=== PATIENT | female | born 1985 | race Caucasian/White ===

== ENCOUNTER 2018-07-16 07:43 | Day surgery (SDC) | payer BC ==
[2018-07-14 11:32] LABS: BASOPHILS 0.1 % (0-2); EOSINOPHILS 0.2 % (0-7); HEMATOCRIT 44.2 % (36.0-48.0); HEMOGLOBIN 15.4 g/dL (12-16); IMMATURE GRANULOCYTES 0.4 % (0-5); LYMPHOCYTES 23.3 % (15-50); MCH 35.7 pg (26.0-34.0); MCHC 34.8 g/dL (31.0-37.0); MCV 102.6 fL (80.0-100.0); MEAN PLATELET VOLUME 11.3 fL (7.4-10.4); MONOCYTES 7.2 % (2-11); NEUTROPHILS 68.8 % (40-80); PLATELET COUNT 202 10x3/uL (130-400); RBC 4.31 10x6/uL (4.00-5.40); RDW 12.3 % (11.5-14.5); WBC 11.4 10x3/uL (4.8-10.8)
[2018-07-14 11:45] LABS: CALC OSMOLALITY 279 mosm/kg (275-300); CARBON DIOXIDE 27.6 mmol/L (21.0-32.0); CHLORIDE - SERUM 103 mmol/L (98-107); CREATININE - SERUM 0.9 mg/dL (0.6-1.3); GLUCOSE 93 mg/dL (74-106); POTASSIUM - SERUM 4.1 mmol/L (3.5-5.1); SODIUM 141 mmol/L (136-145); UREA NITROGEN 10 mg/dL (7-18); eGFR NON AFRICAN AMERICAN 77 mL/min (90-120)
[~2018-07-16] VITALS: Ht 162.6 cm; Wt 88.0 kg
[~2018-07-16 07:43] MED LIST: ABILIFY10 MG PO; CLARITIN 10 MG10 MG PO; DAYQUIL
[2018-07-16 08:09] LABS: HCG URINE NEGATIVE (NEGATIVE)
[2018-07-16 08:12] VITALS: BP 116/68; Ht 162.6 cm; Wt 88.0 kg
--- NOTE | 2018-07-16 11:55 | NUR ---
REC'D FROM RR. NO FAMILY AT BEDSIDE. FL TRAY BROUGHT TO PT. RATES PAIN 2-4/10.
--- NOTE | 2018-07-16 12:14 | NUR ---
PERCOCET 10MG PO ADMINSTERED PER ORDERS.
--- NOTE | 2018-07-16 12:25 | NUR ---
TOLERATED DIET. UP TO BATHROOM TRYING TO VOID. FAMILY AT BEDSIDE.
--- NOTE | 2018-07-16 12:55 | NUR ---
BACK TO BED. FAMILY AT BEDSIDE. VOIDED WITHOUT DIFFICULTY. IV DC'D WITH CATHETER INTACT.
--- NOTE | 2018-07-16 13:00 | NUR ---
WRITTEN AND VERBAL DC INST. GIVEN TO PT ALONG WITH WORK EXCUSE AND RX. VERBALIZED UNDERSTANDING.
--- NOTE | 2018-07-16 13:10 | NUR ---
DC'D HOME WITH FAMILY VIA PRIVATE VEHICLE. TAKEN TO VEHICLE VIA WC. STABLE AT TIME OF DC.
== END 2018-07-16 13:10 | disposition home or self-care (01) ==
LOC: D.OPS 07:43 → D.PAN 10:00 → D.OPS 11:00
PROVIDERS: Obstetrics & Gynecology
DX: R87.612 Low grade squamous intraepithelial lesion on cytologic smear of cervix (LGSIL) (principal); A63.0 Anogenital (venereal) warts